=== PATIENT | male | born 1940 | race Caucasian/White ===

== ENCOUNTER 2016-09-14 17:38 | Emergency (ER) | payer MEDICARE, BC ==
[~2016-09-14] VITALS: Ht 157.5 cm; Wt 63.5 kg
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
[2016-09-14] MEDS ORDERED: IV NS 0.9% 500 ML BAG IV ONE (18:00)
[2016-09-14] MEDS ORDERED: ONDANSETRON HCL/PF 4 MG/2 ML VIAL IVP ONE (18:00)
[2016-09-14] MEDS ORDERED: HYDROMORPHONE INJ 2 MG/ML DISP.SYRIN IV ONE (18:00)
[2016-09-14 18:05] LABS: BASOPHILS # (AUTO) 0.1 /CMM (0.0-0.2); EOSINOPHILS # (AUTO) 0.2 /CMM (0.0-0.7); EOSINOPHILS % (AUTO) 2.5 % (0.0-6.0); HEMATOCRIT 40 % (39-51); HEMOGLOBIN 13.3 g/dL (13.5-17.5); LYMPHOCYTES % (AUTO) 39.6 % (20.0-44.0); MEAN CORPUSCULAR HEMOGLOBIN 29 PG (26.0-33.0); MEAN CORPUSCULAR HGB CONC 33 g/dl (31.0-36.0); MEAN CORPUSCULAR VOLUME 86 fL (80-96); MONOCYTES # (AUTO) 0.7 /CMM (0.1-1.30); MONOCYTES % (AUTO) 9.5 % (2.0-12.0); NEUTROPHILS # (AUTO) 3.7 /CMM (1.8-8.9); NEUTROPHILS % (AUTO) 47.4 % (43.0-81.0); PLATELET COUNT (AUTO) 280 /CMM (150-450); RDW COEFFICIENT OF VARIATION 12.7 (11.5-15.0); RED BLOOD CELL COUNT(AUTO) 4.64 MIL/uL (4.5-6.0); WHITE BLOOD COUNT (AUTO) 7.7 K/uL (4.3-11.0)
[2016-09-14] MEDS ORDERED: HYDROMORPHONE 1 MG/1 ML DISP.SYRIN ONE (18:05)
[2016-09-14] MEDS ORDERED: ONDANSETRON HCL/PF 4 MG/2 ML VIAL ONE (18:05)
[2016-09-14] MEDS ORDERED: IV SET PRIMARY 1 EA INFUS.SET MC ONE (18:06)
[2016-09-14] MEDS ORDERED: IV NS 0.9% 500 ML IV ONE (18:06)
--- NOTE | 2016-09-14 18:18 | NUR ---
PT TRANSPORTED TO CT IN STABLE CONDITION
[2016-09-14 18:33] LABS: CALCIUM, SERUM 9.4 mg/dL (8.5-10.1); CREATININE 1.1 mg/dL (0.6-1.3); POTASSIUM 3.8 mmol/L (3.5-5.1)
[2016-09-14 18:45] LABS: ALBUMIN 3.4 g/dL (3.4-5.0); BILIRUBIN,DIRECT 0.1 mg/dL (0.0-0.2); BILIRUBIN,TOTAL 0.6 mg/dL (0.2-1.0)
--- NOTE | 2016-09-14 19:00 | NUR ---
PT REPORT RECIVED FROM PO RN, PT IN BED ON MONITOR VSS, PT DENIES PAIN AT THIS TIME, PT FAMILY AT BEDSIDE WILL CONTINUE TO MONITOR.
--- NOTE | 2016-09-14 19:32 | NUR ---
Patient discharged to home in stable condition. Written and verbal after care instructions given. Patient verbalizes understanding of instruction.IV removed. Catheter intact and site benign. Pressure and 4x4 applied to site. No bleeding noted.
[2016-09-14 19:33] VITALS: BP 15/88
== END 2016-09-14 19:33 | disposition home or self-care (01) ==
LOC: ER 17:41 → EDBD 17:41 → ER 19:33
DX: R10.31 Right lower quadrant pain (principal); I10 Essential (primary) hypertension; E11.9 Type 2 diabetes mellitus without complications; I48.91 Unspecified atrial fibrillation; Z95.1 Presence of aortocoronary bypass graft; Z98.890 Other specified postprocedural states; Z91.013 Allergy to seafood; Z91.048 Other nonmedicinal substance allergy status
CPT/HCPCS: 36415; 74176; 80048; 80076; 85025; 96374; 96375; 99285; A4606; J1170; J2405; J7040; Z7610

== ENCOUNTER 2020-02-09 17:19 | Emergency (ER) | payer MEDICARE, BC ==
[~2020-02-09] VITALS: Ht 162.6 cm; Wt 61.7 kg
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
[2020-02-09] MEDS ORDERED: IBUPROFEN 600 MG TABLET ONE (17:49)
[2020-02-09] MEDS ORDERED: SILVER SULFADIAZINE CREAM 25 GM TUBE ONE (17:52)
[2020-02-09] MEDS ORDERED: SILVER SULFADIAZINE 50 GM JAR TP PRN (18:00)
[2020-02-09] MEDS ORDERED: IBUPROFEN 600 MG TABLET PO ONE (18:00)
[2020-02-09 18:08] VITALS: BP 118/70
--- NOTE | 2020-02-09 18:08 | NUR ---
Patient discharged to home in stable condition. Written and verbal after care instructions given. Patient verbalizes understanding of instruction.
== END 2020-02-09 18:08 | disposition home or self-care (01) ==
LOC: ER 17:24
DX: T23.102A Burn of first degree of left hand, unspecified site, initial encounter (principal); T23.101A Burn of first degree of right hand, unspecified site, initial encounter; E11.9 Type 2 diabetes mellitus without complications; Z91.048 Other nonmedicinal substance allergy status; Z91.013 Allergy to seafood; X19.XXXA Contact with other heat and hot substances, initial encounter; Y93.89 Activity, other specified; Y92.89 Other specified places as the place of occurrence of the external cause; Y99.8 Other external cause status

== ENCOUNTER 2020-12-20 10:34 | Emergency (ER) | payer MEDICARE, BC ==
[~2020-12-20] VITALS: Ht 170.2 cm; Wt 62.6 kg
--- NOTE | 2020-12-20 11:00 | NUR ---
Patient came in to the er c/o back pain radiating to LLE. On room air, breathing evenly and unlabored. Connected to the monitor and pulse ox. Kept comfortable, will continue to monitor accordingly. Ambulatory with steady gait.
[2020-12-20] MEDS ORDERED: OXYB5TAB16 PO (11:13)
[2020-12-20] MEDS ORDERED: DONE10TA44 PO (11:13)
[2020-12-20] MEDS ORDERED: MEMA28CA5 PO (11:13)
[2020-12-20] MEDS ORDERED: AMLO-212 PO (11:13)
[2020-12-20] MEDS ORDERED: ROSU20TA32 PO (11:13)
[2020-12-20] MEDS ORDERED: PREG150C93 PO (11:13)
[2020-12-20] MEDS ORDERED: LANS30CA56 PO (11:13)
[2020-12-20] MEDS ORDERED: SITA100T PO (11:13)
[2020-12-20] MEDS ORDERED: DUTA0.5C37 PO (11:13)
[2020-12-20] MEDS ORDERED: METF-836 PO (11:13)
[2020-12-20] MEDS ORDERED: RIVA10TA PO (11:17)
[2020-12-20 11:20] LABS: BILIRUBIN,URINE Negative (NEGATIVE); COLOR,URINE YELLOW (YELLOW); LEUKOCYTE ESTERASE ,URINE Negative (NEGATIVE); NITRITE, URINE Negative (NEGATIVE); PH,URINE 5.5 (5.0-8.0); PROTEIN,URINE Negative (NEGATIVE); UGLUCOSE >=1000 mg/dL (NEGATIVE); UROBILINOGEN,URINE 0.2 EU/dL (0.2)
[2020-12-20 11:22] LABS: BASOPHILS # (AUTO) 0.1 K/uL (0.0-0.2); BASOPHILS % (AUTO) 1.2 % (0.0-2.0); EOSINOPHILS % (AUTO) 3.7 % (0.0-6.0); HEMATOCRIT 41 % (39-51); HEMOGLOBIN 13.9 g/dL (13.5-17.5); LYMPHOCYTES # (AUTO) 2.5 K/uL (0.8-4.8); LYMPHOCYTES % (AUTO) 38.2 % (20.0-44.0); MEAN CORPUSCULAR HGB CONC 34 g/dl (31.0-36.0); MEAN CORPUSCULAR VOLUME 85 fL (80-96); MONOCYTES # (AUTO) 0.5 K/uL (0.1-1.30); MONOCYTES % (AUTO) 7.1 % (2.0-12.0); NEUTROPHILS # (AUTO) 3.2 K/uL (1.8-8.9); NEUTROPHILS % (AUTO) 49.8 % (43.0-81.0); PLATELET COUNT (AUTO) 282 K/uL (150-450); RED BLOOD CELL COUNT(AUTO) 4.85 MIL/uL (4.5-6.0); WHITE BLOOD COUNT (AUTO) 6.5 K/uL (4.3-11.0)
[2020-12-20 11:25] LABS: CALCIUM, SERUM 9.1 mg/dL (8.5-10.1); POTASSIUM 4.8 mmol/L (3.5-5.1); WBC,URINE 0-2 /HPF (0-3)
[2020-12-20 11:26] LABS: BACTERIA,URINE Rare /HPF (None Seen); SQUAMOUS EPITHELIAL CELL,UR Rare /HPF (None Seen)
[2020-12-20] MEDS ORDERED: TRAMADOL HCL 50 MG TABLET ONE (12:30)
[2020-12-20] MEDS ORDERED: IBUPROFEN 600 MG TABLET ONE (12:30)
[2020-12-20] MEDS: IBUPROFEN 600 MG TABLET PO ONE (12:34)
[2020-12-20] MEDS: TRAMADOL HCL 50 MG TABLET PO ONE (12:34)
--- NOTE | 2020-12-20 12:36 | NUR ---
Patent refused 600mg motrin, per patient he already took motrin 600mg [employer]. notified and made aware.
[2020-12-20] MEDS ORDERED: CYCL10TA9 PO (12:48)
[2020-12-20 12:54] VITALS: BP 110/55
--- NOTE | 2020-12-20 12:55 | NUR ---
Patient discharged to home in stable condition. Written and verbal after care instructions given. Patient verbalizes understanding of instruction.
== END 2020-12-20 12:55 | disposition home or self-care (01) ==
LOC: ER 10:36
DX: M54.42 Lumbago with sciatica, left side (principal); Z91.013 Allergy to seafood; Z91.048 Other nonmedicinal substance allergy status; Z79.899 Other long term (current) drug therapy
CPT/HCPCS: 36415; 72100-TC; 80048-TC; 81001; 85025-TC